=== PATIENT | female | born 1990 | race Two or more races ===

== ENCOUNTER 2016-10-15 12:42 | Emergency (ER) | payer OTHER ==
[~2016-10-15] VITALS: Ht 162.6 cm; Wt 58.5 kg
[2016-10-15 12:45] VITALS: Ht 162.6 cm; Wt 58.5 kg
[2016-10-15] MEDS ORDERED: PRED20TA PO (13:01)
[2016-10-15] MEDS ORDERED: CEFU500T45 PO (13:01)
[2016-10-15] MEDS ORDERED: IBUP-1542 PO (13:01)
--- NOTE | 2016-10-15 13:06 | ERD ---
ER Documentation Chief Complaint Date/Time DATE: 10/15/16 TIME: 13:05 Chief Complaint BILATERAL EAR PAIN, SORE THROAT, AND BODYACHES X 3 WEEKS HPI This 26-year-old female presents with a 3 week history of nasal congestion, pain in her forehead, cough and body aches. There is no history of measured fevers. She has vomiting, abdominal pain, sore throat or shortness of breath or chest pain. They are flying in 4 days and she is concerned about the ear pain causing pain during flying. ROS All systems reviewed and are negative except as per history of present illness. Medications Home Meds Active Scripts Ibuprofen* (Ibuprofen*) 600 Mg Tablet, 600 MG PO Q6, #15 TAB Prov:CASANDRA FARIAS MD 10/15/16 Cefuroxime Axetil* (Cefuroxime Axetil*) 500 Mg Tablet, 500 MG PO BID for 10 Days , TAB Prov:CASANDRA FARIAS MD 10/15/16 Prednisone* (Prednisone*) 20 Mg Tab, 40 MG PO DAILY for 4 Days, TAB Prov:CASANDRA FARIAS MD 10/15/16 Allergies Allergies: Coded Allergies: No Known Allergy (Unverified , 10/15/16) PMhx/Soc Medical and Surgical Hx: pt denies Medical Hx, pt denies Surgical Hx Physical Exam Vitals Vital Signs Date Time Temp Pulse Resp B/P Pulse Ox O2 Delivery O2 Flow Rate FiO2 10/15/16 12:45 98.1 71 18 104/59 98 Physical Exam Const: [] Alert, [id number] Head: Atraumatic Eyes: Normal Conjunctiva ENT: Normal External Ears, Nose and Mouth. TMs with clear liquid decreased light reflex. 2+ nasal discharge. Postnasal drip which is yellow or green. Mild tenderness in the frontal and facial area. Neck: Full range of motion..~ No meningismus. Resp: Clear to auscultation bilaterally Cardio: Regular rate and rhythm, no murmurs Abd: Soft, non tender, non distended. Normal bowel sounds Skin: No petechiae or rashes Back: No midline or flank tenderness Ext: No cyanosis, or edema Neur: Awake and alert Psych: Normal Mood and Affect Procedures/MDM Patient presents with URI symptoms for last 3 weeks. She has signs of possible sinusitis will treated with Ceftin, short course prednisone given that she is flying and ibuprofen. The patient was stable with no new complaints during the ER course. Clinically, there is no current evidence to suggest meningitis, sepsis, acute abdomen, pneumonia, acute coronary syndrome, pulmonary embolism, or any other emergent condition appearing to require further evaluation or hospitalization. The patient should certainly return for any new or worsening symptoms per the aftercare instructions. They should otherwise follow-up with her primary care doctor for reevaluation this week. Departure Diagnosis: Primary Impression: Sinusitis Sinusitis location: frontal Chronicity: acute Recurrence: not specified as recurrent Qualified Code: J01.10 - Acute frontal sinusitis, recurrence not specified Condition: Stable Patient Instructions: Sinusitis, Abx Tx Additional Instructions: Recheck for new or worsening symptoms or primary care doctor. CASANDRA FARIAS MD Oct 15, 2016 13:06
== END 2016-10-15 14:35 | disposition home or self-care (01) ==
LOC: FTE 12:42
DX: J01.10 Acute frontal sinusitis, unspecified (principal)
CPT/HCPCS: 99284

== ENCOUNTER 2018-08-10 09:59 | Emergency (ER) | payer OTHER ==
[~2018-08-10] VITALS: Ht 160 cm; Wt 59.7 kg
[~2018-08-10 09:59] MED LIST: CEFU500T45 PO; IBUP-1542 PO; PRED20TA PO
[2018-08-10 10:04] VITALS: Ht 160 cm; Wt 59.7 kg
[2018-08-10] MEDS ORDERED: METHYLPREDNISOLONE 125 MG INJ IV ONE (10:30)
[2018-08-10] MEDS ORDERED: FAMOTIDINE 20 MG INJ IV STA (10:59)
[2018-08-10] MEDS ORDERED: PRED20TA PO (12:11)
[2018-08-10] MEDS ORDERED: FAMO-96 PO (12:11)
[2018-08-10] MEDS ORDERED: BEN25 PO (12:11)
[2018-08-10 12:12] VITALS: BP 97/52; PULSE 80; RESP 18
--- NOTE | 2018-08-10 15:20 | ERD ---
ER Documentation Chief Complaint Chief Complaint c/o itchy eyes,throat irritation after drinking aloe vera juice x30 mts ago HPI History of Present Illness: 27-year-old female with a past medical history coming in today with complaints of itchy eyes, tingling throat. Patient reports this occurred 30 minutes prior to arrival in which she drinks an elevator juice for the first time. Patient speaking clear sentences at this time. Patient adenike ears anxious. Associated symptoms include upper abdominal pain. At home pharmacological/nonpharmacological treatment for symptoms: Patient reports that her mother's medication; unable to verify the type of medication due to medication being in another language. Patient reports medication cueva to injections. Denies social concerns; Denies recent foreign travel ROS All systems reviewed and are negative except as per history of present illness. Medications Home Meds Active Scripts Famotidine* (Pepcid*) 20 Mg Tablet, 20 MG PO BID for ALLERGIC REACTION for 5 Days, TAB Prov:HÉCTOR MOSELEY V LARDER COOK 08/10/18 Diphenhydramine Hcl* (Benadryl*) 25 Mg Cap, 25 MG PO Q12 for ALLERGIC REACTION, #30 CAP Prov:HÉCTOR MOSELEY NP 08/10/18 Prednisone* (Prednisone*) 20 Mg Tab, 40 MG PO DAILY for ALLERGIC REACTION for 5 Days, TAB Prov:HÉCTOR MOSELEY NP 08/10/18 Ibuprofen* (Ibuprofen*) 600 Mg Tablet, 600 MG PO Q6, #15 TAB Prov:CASANDRA FARIAS MD 10/15/16 Cefuroxime Axetil* (Cefuroxime Axetil*) 500 Mg Tablet, 500 MG PO BID for 10 Days, TAB Prov:CASANDRA FARIAS MD 10/15/16 Prednisone* (Prednisone*) 20 Mg Tab, 40 MG PO DAILY for 4 Days, TAB Prov:CASANDRA FARIAS MD 10/15/16 Allergies Allergies: Coded Allergies: No Known Allergy (Unverified , 10/15/16) PMhx/Soc Medical and Surgical Hx: pt denies Medical Hx, pt denies Surgical Hx Hx Alcohol Use: No Hx Substance Use: No Hx Tobacco Use: No FmHx Family History: No coronary disease Physical Exam Vitals Vital Signs Date Temp Pulse Resp B/P (MAP) Pulse Ox O2 O2 Flow FiO2 Time Delivery Rate 08/10/18 97.9 80 18 97/52 (67) 99 12:12 08/10/18 98.1 92 18 111/60 99 10:04 (77) Physical Exam Const: No acute distress, patient appears mildly anxious, patient Head: Atraumatic Eyes: Normal Conjunctiva ENT: Normal External Ears, Nose and Mouth. Airway intact. Neck: Full range of motion. No meningismus. Resp: Clear to auscultation bilaterally. No wheezing, no stridor. Cardio: Regular rate and rhythm, no murmurs. No tachycardia. Abd: Soft, non tender, non distended. Normal bowel sounds Skin: No petechiae or rashes, no pallor noted Back: No midline or flank tenderness Ext: No cyanosis, or edema Neur: Awake and alert Psych: Normal Mood and Affect Results 24 hrs Current Medications Medications Dose Sig/Shelia Start Time Status Last (Trade) Ordered Route PRN Stop Time Admin Dose Reason Admin 125 mg ONCE ONCE 08/10/18 DC 08/10/18 Methylprednis IV 10:30 10:32 olone Sodium 08/10/18 10:31 Succinate (Solu-Medrol) Famotidine 20 mg ONCE STAT 08/10/18 DC 08/10/18 (Pepcid Iv) IV 10:59 11:06 08/10/18 11:00 Procedures/MDM Patient reports that pain has significantly decreased. ED course includes a thorough examination and history. Medications: Solu-Medrol, Pepcid Imaging: -- Labs: -- Low suspicion for life-threatening medical emergency. Low suspicion for coronary pulmonary emergency requires auscultation of the surgical intervention. Otherwise healthy patient presenting with constellation of symptoms likely representing allergic reaction as characterized by history, physical exam findings. Medications that were given prior to arrival appear to be consistent with Benadryl/diphenhydramine and a pain medication. No respiratory distress, otherwise relatively well appearing and nontoxic. Patient without respiratory distress, symptoms are no longer present including throat irritation and itching days of eyes. Patient has reported that pain has significantly decreased. Patient educated on diagnoses, prescriptions, follow- up care, return precautions. Strict return precautions given for worsening condition; questions answered discharge. Disposition for discharge with followup in 2 days with PCP/clinic. Departure Diagnosis: Primary Impression: Allergic reaction Encounter type: initial encounter Qualified Codes: T78.40XA - Allergy, unspecified, initial encounter Additional Impression: Food allergy Condition: Stable Patient Instructions: First Aid: Allergic Reactions, Food Allergy Referrals: [facility] YOU HAVE RECEIVED A MEDICAL SCREENING EXAM AND THE RESULTS INDICATE THAT YOU DO NOT HAVE A CONDITION THAT REQUIRES URGENT TREATMENT IN THE EMERGENCY DEPARTMENT. FURTHER EVALUATION AND TREATMENT OF YOUR CONDITION CAN WAIT UNTIL YOU ARE SEEN IN YOUR DOCTORS OFFICE WITHIN THE NEXT 1-2 DAYS. IT IS YOUR RESPONSIBILITY TO MAKE AN APPOINTMENT FOR FOLOW-UP CARE. IF YOU HAVE A PRIMARY DOCTOR --you should call your primary doctor and schedule an appointment IF YOU DO NOT HAVE A PRIMARY DOCTOR YOU CAN CALL OUR PHYSICIAN REFERRAL HOTLINE AT IF YOU CAN NOT AFFORD TO SEE A PHYSICIAN YOU CAN CHOSE FROM THE FOLLOWING [facility] [address] [facility]. [facility] [address] [facility] [address] [facility] [address] [facility] [address] [facility]. [facility] [address] [facility]. [facility] YOU HAVE RECEIVED A MEDICAL SCREENING EXAM AND THE RESULTS INDICATE THAT YOU DO NOT HAVE A CONDITION THAT REQUIRES URGENT TREATMENT IN THE EMERGENCY DEPARTMENT. FURTHER EVALUATION AND TREATMENT OF YOUR CONDITION CAN WAIT UNTIL YOU ARE SEEN IN YOUR DOCTORS OFFICE WITHIN THE NEXT 1-2 DAYS. IT IS YOUR RESPONSIBILITY TO MAKE AN APPOINTMENT FOR FOLOW-UP CARE. IF YOU HAVE A PRIMARY DOCTOR --you should call your primary doctor and schedule and appointment IF YOU DO NOT HAVE A PRIMARY DOCTOR YOU CAN CALL OUR PHYSICIAN REFERRAL HOTLINE AT . IF YOU CAN NOT AFFORD TO SEE A PHYSICIAN YOU CAN CHOSE FROM THE FOLLOWING [facility] INSTITUTIONS: [facility] [address] [place] [address] [facility] [address] [place] [address] [facility] [address] [place] [address] Additional Instructions: Thank you very much for allowing us to participate in your care. Your health and safety is our top priority at [facility]. It is important to read all discharge instructions and education provided in your discharge packet. Call your primary care doctor TOMORROW for an appointment during the next 2-4 days and bring all the information and medications prescribed. Have prescriptions filled and follow precisely the directions on the label. --Prednisone is a steroid, which decreases inflammation; uses medication every morning with breakfast to decrease inflammation associated with your allergic reaction. --Diphenhydramine is a medication that will help with allergies. It helps to decrease the allergic response. This medication may make you drowsy. --Famotidine is a medication that will also help with allergic reaction. If the symptoms get worse and your provider is unavailable, return to the [facility] immediately. HÉCTOR MOSELEY NP Aug 10, 2018 15:20
== END 2018-08-10 12:33 | disposition home or self-care (01) ==
LOC: FTE 09:59
DX: T78.1XXA Other adverse food reactions, not elsewhere classified, initial encounter (principal); L29.9 Pruritus, unspecified
CPT/HCPCS: 96374; 96375; J2930; Z7502; Z7610